=== PATIENT | female | born 1980 | race Two or more races ===

== ENCOUNTER 2022-04-06 00:28 | Emergency (ER) | payer OTHER ==
[~2022-04-06] VITALS: Ht 167.6 cm; Wt 68.0 kg
--- NOTE | 2022-04-06 00:38 | NUR ---
[id number] FROM HOME FOR SOB AND CHEST TIGHTNESS SINCE 8PM. DX WITH PE TUESDAY AT [facility] WITH MULTIPLE DVT'S. DC'D TUESDAY ON ELIQU. PATIENT ALERT AND ORIENTED X3. AMBULATORY WITH NON LABORED BREATHING IN BED AWAITING MD ISABEL.
--- NOTE | 2022-04-06 00:42 | NUR ---
LINE ESTABLISHED AT L AC 20G
--- NOTE | 2022-04-06 00:42 | NUR ---
EMT AT BEDSIDE FOR EKG
--- NOTE | 2022-04-06 00:42 | NUR ---
BLOOD COLLECTED AND SENT TO LAB
--- NOTE | 2022-04-06 00:46 | NUR ---
PREG WAIVER SIGNED
[2022-04-06] MEDS ORDERED: CT SWABBABLE VALVE TRANS SET 1 EA INFUS.SET MC ONE (00:52)
[2022-04-06] MEDS ORDERED: IV NS 0.9% 250 ML IV ONE (00:52)
[2022-04-06] MEDS ORDERED: IOHEXOL-350 100 ML VIAL IV ONE (00:52)
--- NOTE | 2022-04-06 00:59 | NUR ---
PATIENT AT CT
[2022-04-06 01:02] LABS: BASOPHILS # (AUTO) 0.1 K/uL (0.0-0.2); BASOPHILS % (AUTO) 0.9 % (0.0-2.0); EOSINOPHILS % (AUTO) 2.2 % (0.0-6.0); HEMATOCRIT 30 % (33-45); HEMOGLOBIN 9.8 g/dL (11.5-14.8); LYMPHOCYTES # (AUTO) 2.5 K/uL (0.8-4.8); LYMPHOCYTES % (AUTO) 43.1 % (20.0-44.0); MEAN CORPUSCULAR HGB CONC 33 g/dl (31.0-36.0); MEAN CORPUSCULAR VOLUME 89 fL (82-100); MONOCYTES # (AUTO) 0.4 K/uL (0.1-1.30); MONOCYTES % (AUTO) 7.3 % (2.0-12.0); NEUTROPHILS # (AUTO) 2.7 K/uL (1.8-8.9); NEUTROPHILS % (AUTO) 46.5 % (43.0-81.0); PLATELET COUNT (AUTO) 416 K/uL (150-450); WHITE BLOOD COUNT (AUTO) 5.8 K/uL (4.3-11.0)
[2022-04-06 01:09] LABS: CALCIUM, SERUM 9.1 mg/dL (8.5-10.1); CARBON DIOXIDE 30 mmol/L (21-32); CHLORIDE 103 mmol/L (98-107); CREATININE 0.9 mg/dL (0.6-1.3); GLUCOSE 98 mg/dL (74-106); POTASSIUM 3.7 mmol/L (3.5-5.1); SODIUM SERUM 139 mmol/L (136-145); UREA NITROGEN, BLOOD 12 mg/dL (7-18)
[2022-04-06 02:51] VITALS: BP 109/73
--- NOTE | 2022-04-06 02:51 | NUR ---
Patient discharged to home in stable condition. Written and verbal after care instructions given. Patient verbalizes understanding of instruction.IV removed. Catheter intact and site benign. Pressure and 4x4 applied to site. No bleeding noted.
--- NOTE | 2022-04-06 02:51 | NUR ---
IV removed. Catheter intact and site benign. Pressure and 4x4 applied to site. No bleeding noted.Patient does not wish to proceed with medical care recommended by Dr. Kitchen. Patient given information related to possible complications, up to and including , which could occur as a result of leaving the hospital at this time. Patient verbalizes understanding of risks involved due to leaving against medical advice. Patient has signed AMA form is going to follow up with her own PCP at [facility]
== END 2022-04-06 02:51 | disposition home or self-care (01) ==
LOC: ER 00:30
DX: I26.99 Other pulmonary embolism without acute cor pulmonale (principal); R06.00 Dyspnea, unspecified; R07.89 Other chest pain; F41.9 Anxiety disorder, unspecified
CPT/HCPCS: 99285; 71275; 71045; 93005; 85025; 80048; 36415; 84484; J7050; Q9967